=== PATIENT | female | born 1995 | race Caucasian/White ===

== ENCOUNTER 2017-08-09 23:09 | Emergency (ER) | payer SELFPAY ==
[~2017-08-09] VITALS: Ht 162.6 cm; Wt 72.0 kg
[2017-08-09 23:20] VITALS: BP 122/82
[2017-08-09 23:55] LABS: APPEARANCE,URINE CLOUDY (CLEAR); GLUCOSE, URINE (UA) NEGATIVE (NEGATIVE); KETONES,URINE NEGATIVE (NEGATIVE); LEUKOCYTE ESTERASE ,URINE NEGATIVE (NEGATIVE); OCCULT BLOOD,URINE TRACE (NEGATIVE); PROTEIN,URINE NEGATIVE (NEGATIVE)
[2017-08-10 00:11] LABS: SQUAMOUS EPITHELIAL CELL,UR Few /LPF (None Seen)
== END 2017-08-10 00:43 | disposition left against medical advice (07) ==
LOC: EMS 23:10 → EDBD 23:10 → EMS 08-10 00:43
DX: R10.9 Unspecified abdominal pain (principal); Z53.21 Procedure and treatment not carried out due to patient leaving prior to being seen by health care provider
CPT/HCPCS: 99281